=== PATIENT | male | born 1975 | race Caucasian/White ===

== ENCOUNTER 2023-03-01 05:43 | Day surgery (SDC) | payer BC, OTHER ==
[2023-02-27 12:51] VITALS: BMI 39.1
[2023-03-01 07:46] VITALS: TEMP 97.8
[2023-03-01 10:13] VITALS: RESP 19
[2023-03-01 10:22] VITALS: BP 142/97; PULSE 75
== END 2023-03-01 10:45 | disposition home or self-care (01) ==
LOC: JASU-ENDO 05:43
PROVIDERS: ATTEND Internal Medicine Gastroenterology
PROC: 0DBH8ZX Excision of Cecum, Via Natural or Artificial Opening Endoscopic, Diagnostic (ICD-10-PCS; 2023-03-01)
PROC: 0DBP8ZX Excision of Rectum, Via Natural or Artificial Opening Endoscopic, Diagnostic (ICD-10-PCS; 2023-03-01)
PROC: 3E0H8GC Introduction of Other Therapeutic Substance into Lower GI, Via Natural or Artificial Opening Endoscopic (ICD-10-PCS; 2023-03-01)
PROC: 0DBP8ZX Excision of Rectum, Via Natural or Artificial Opening Endoscopic, Diagnostic (ICD-10-PCS; principal; 2023-03-01 09:00)
DX: Z12.11 Encounter for screening for malignant neoplasm of colon (principal); D12.8 Benign neoplasm of rectum; K63.5 Polyp of colon; Z83.71 Family history of colonic polyps
CPT/HCPCS: 88305-TC

== ENCOUNTER 2024-03-02 04:20 | Day surgery (SDC) | payer BC, OTHER ==
[2024-02-28 09:07] VITALS: BMI 38.1
[2024-03-02 08:40] VITALS: TEMP 97.6
[2024-03-02 09:09] VITALS: BP 128/82; PULSE 64; RESP 19
== END 2024-03-02 09:10 | disposition home or self-care (01) ==
LOC: JASU-ENDO 04:20
PROVIDERS: ATTEND Internal Medicine Gastroenterology
PROC: 0DBP8ZX Excision of Rectum, Via Natural or Artificial Opening Endoscopic, Diagnostic (ICD-10-PCS; principal; 2024-03-02 08:00)
DX: Z12.11 Encounter for screening for malignant neoplasm of colon (principal); D12.8 Benign neoplasm of rectum; Z86.010 Personal history of colon polyps; Z83.719 Family history of colon polyps, unspecified
CPT/HCPCS: 88305-TC